=== PATIENT | female | born 1950 | race Caucasian/White ===

== ENCOUNTER → 2016-10-31 | Outpatient (CLI) | payer MEDICARE | END | disposition home or self-care (01) | LOC: PCVCCLINIC 16:04 | PROVIDERS: ATTEND Internal Medicine Cardiovascular Disease | DX: I10 Essential (primary) hypertension (principal); E78.00 Pure hypercholesterolemia, unspecified; G47.33 Obstructive sleep apnea (adult) (pediatric); Z82.49 Family history of ischemic heart disease and other diseases of the circulatory system; Z79.82 Long term (current) use of aspirin; Z79.899 Other long term (current) drug therapy | CPT/HCPCS: 80061; 93005; G0463 ==

== ENCOUNTER → 2017-06-19 | Outpatient (CLI) | payer MEDICARE | END | disposition home or self-care (01) | LOC: PCVCCLINIC 13:51 | DX: I10 Essential (primary) hypertension (principal); E78.00 Pure hypercholesterolemia, unspecified; G47.33 Obstructive sleep apnea (adult) (pediatric); E66.09 Other obesity due to excess calories; R01.1 Cardiac murmur, unspecified; Z82.49 Family history of ischemic heart disease and other diseases of the circulatory system; Z87.898 Personal history of other specified conditions; Z79.899 Other long term (current) drug therapy; Z79.82 Long term (current) use of aspirin | CPT/HCPCS: 80061 ==

== ENCOUNTER → 2018-01-03 | Outpatient (CLI) | payer MEDICARE ==
--- NOTE | 2018-01-03 15:57 | PCVCIMAG ---
APPROVED REPORT Study performed: 01/03/2018 12:22:11 EXAM: Comprehensive 2D, Doppler, and color-flow Echocardiogram Patient Location: Echo lab Status: routine BSA: 2.11 HR: 63 bpmBP: 130/80 mmHg Rhythm: NSR Other Information Study Quality: Good Indications Aortic Valve Disease Murmur Palpitations Hypertension/HDD 2D Dimensions IVSd: 12.27 (7-11mm)LVOT Diam: 20.66 (18-24mm) LVDd: 41.43 mm PWd: 11.24 (7-11mm)Ascending Ao: 41.54 (22-36mm) LVDs: 33.29 (25-40mm) Left Atrium: 36.46 (27-40mm) Aortic Root: 31.84 mm LV Single Plane 4CH: 67.34 % LV Single Plane 2CH: 59.84 % Biplane EF: 65.4 % Volumes Left Atrial Volume (Systole) Single Plane 4CH: 51.24 mLSingle Plane 2CH: 58.39 mL LA ESV Index: 27.00 mL/m2 Aortic Valve AoV Peak Yoseph.: 2.05 m/s AO Peak Gr.: 16.80 mmHgLVOT Max P.08 mmHg AO Mean Gr.: 8.65 mmHgLVOT Mean P.90 mmHg AO V2 Mean: 1.42 m/sLVOT Max V: 1.23 m/s AO V2 VTI: 44.52 cmLVOT Mean V: 0.96 m/s ARNOLDO (VTI): 2.36 [id number] V1 VTI: 31.30 cm ARNOLDO Vmax: 2.02 cm2 SV (LVOT): 104.90 mL Mitral Valve E/A Ratio: 0.7 MV Decel. Time: 214.76 ms MV E Max Yoseph.: 0.78 m/s MV A Yoseph.: 1.19 m/s IVRT: 148.79 ms TDI E/Lateral E': 8.67E/Medial E': 8.67 Medial E' Yoseph.: 0.09 m/s Lateral E' Yoseph.: 0.09 m/s Pulmonary Valve PV Peak Gr.: 3.36 mmHg Pulmonary Vein P Vein S: 0.65 m/sP Vein A: 0.36 m/s P Vein D: 0.45 m/sP Vein A Dur.: 90.0 msec P Vein S/D Ratio: 1.44 Tricuspid Valve TR Peak Yoseph.: 2.77 m/s TR Peak Gr.: 30.66 mmHg Left Ventricle The left ventricle is normal size. There is normal LV segmental wall motion. There is normal left ventricular wall thickness. Left ventricular systolic function is normal. The left ventricular ejection fraction is within the normal range. LVEF is 55-60%. The left ventricular diastolic function is normal. Right Ventricle The right ventricle is normal size. The right ventricular systolic function is normal. Atria The left atrium size is normal. The right atrium size is normal. Aortic Valve The aortic valve is normal in structure. Trace aortic regurgitation. There is no aortic valvular stenosis. Mitral Valve The mitral valve is normal in structure. There is no mitral valve regurgitation noted. No evidence of mitral valve stenosis. Tricuspid Valve The tricuspid valve is normal in structure. Trace tricuspid regurgitation. Pulmonary artery pressure is 38mmHg. Pulmonic Valve The pulmonary valve is normal in structure. There is no pulmonic valvular regurgitation. Great Vessels The aortic root is normal in size. IVC is normal in size and collapses >50% with inspiration. Pericardium There is no pericardial effusion. <Conclusion> The left ventricle is normal size. LVEF is 55-60%. The left ventricular diastolic function is normal. The right ventricle is normal size. The left atrium size is normal. The aortic valve is normal in structure. There is no aortic valvular stenosis. There is no mitral valve regurgitation noted. Trace tricuspid regurgitation. Pulmonary artery pressure is 38mmHg. The aortic root is normal in size. There is no pericardial effusion.
== END | disposition home or self-care (01) ==
LOC: PCVCIMAG 12:15
PROVIDERS: ATTEND Internal Medicine Cardiovascular Disease
DX: I35.1 Nonrheumatic aortic (valve) insufficiency (principal); E78.00 Pure hypercholesterolemia, unspecified; Z82.49 Family history of ischemic heart disease and other diseases of the circulatory system; I10 Essential (primary) hypertension; G47.33 Obstructive sleep apnea (adult) (pediatric); E66.9 Obesity, unspecified; R00.2 Palpitations; R01.1 Cardiac murmur, unspecified; Z79.82 Long term (current) use of aspirin
CPT/HCPCS: 93005; 93306; G0463

== ENCOUNTER → 2018-08-29 | Outpatient (CLI) | payer MEDICARE | END | disposition home or self-care (01) | LOC: PCVCCLINIC 14:00 | PROVIDERS: ATTEND Internal Medicine Cardiovascular Disease | DX: E78.00 Pure hypercholesterolemia, unspecified (principal); I35.1 Nonrheumatic aortic (valve) insufficiency; I10 Essential (primary) hypertension; G47.33 Obstructive sleep apnea (adult) (pediatric); Z88.8 Allergy status to other drugs, medicaments and biological substances; Z82.49 Family history of ischemic heart disease and other diseases of the circulatory system; Z79.82 Long term (current) use of aspirin | CPT/HCPCS: 36415; 80061; 93005; G0463 ==

== ENCOUNTER → 2018-09-24 | Outpatient (CLI) | payer MEDICARE ==
--- NOTE | 2018-09-24 14:59 | PCVCIMAG ---
APPROVED REPORT Study performed: 09/24/2018 13:08:57 Exam: Stress Echocardiogram Indication: Hyperlipidemia, Hypertension, Pre op surgery Patient Location: Echo lab Stress Nurse: Sherice Garg RN Status: routine Ht: 5 ft 3 in HR: 93 bpm BP: 120/80 mmHg Rhythm: NSR Procedure The patient underwent an Exercise Stress Test using the Alfredo Protocol. Blood pressure, heart rate, and EKG were monitored. An Echocardiogram was performed by lead slot technician in four stages in quad fashion. At peak stress, four selected images were obtained and placed side by side with resting images for comparison. Stress Test Details Stress Test: Exercise stress testing was performed using a Alfredo protocol. HR Resting HR: 93 bpmMax Heart Rate (APMHR): 151 bpm Max HR Achieved: 136 bpmTarget HR (85% APMHR): 128 bpm % of APMHR: 90 Recovery HR: 103 bpm HR response to stress: Normal HR response to stress BP Resting BP: 120/80 mmHg Max BP: 176/82 mmHg Recovery BP: 126/58 mmHg BP response to stress: Normal blood pressure response to stress. ECG Resting ECG: Sinus Rhythm Stress ECG: Sinus Rhythm Recovery ECG: Sinus Rhythm Clinical Reason for Termination: Maximal effort Stress Symptoms: Dyspnea Exercise duration: 4 min 06 sec Highest Stage Achieved: Stage 2: 2.5 mph at 12% grade. Exercise capacity: 7.00 METs Overall Exercise Capacity for Age: Poor Pre-Stress Echo The resting Echocardiogram showed normal left ventricular contractility with an estimated Ejection Fraction of about 55-60%. Normal wall motion in all segments on baseline images. Post-Stress Echo The stress Echocardiogram showed normal left ventricular contractility with an estimated Ejection Fraction of about 60-65%. Normal augmentation of wall motion in all segments on post stress images. Clinical No clinical or ECG evidence for ischemia. Conclusion Clinical Response: Non-ischemic Exercise Capacity: Below Average Stress ECG Response: Non-ischemic Stress Echo Images: Non-ischemic The left ventricle is normal in size and wall thickness in both the rest and stress images. Other Information Study Quality: Adequate <Conclusion> The left ventricle is normal in size and wall thickness in both the rest and stress images.
== END | disposition home or self-care (01) ==
LOC: PCVCIMAG 12:46
PROVIDERS: ATTEND Internal Medicine Cardiovascular Disease
DX: I35.1 Nonrheumatic aortic (valve) insufficiency (principal); I10 Essential (primary) hypertension; E78.00 Pure hypercholesterolemia, unspecified; Z82.49 Family history of ischemic heart disease and other diseases of the circulatory system; Z88.8 Allergy status to other drugs, medicaments and biological substances
CPT/HCPCS: 93325; 93351